=== PATIENT | female | born 1955 ===

== ENCOUNTER 2019-05-14 08:40 | Day surgery (SDC) | payer MEDICARE ==
[~2019-05-14] VITALS: Ht 160 cm; Wt 60.6 kg
[~2019-05-14 08:40] MED LIST: LEVO-T50 MC1 PO; LORA.5 PO; [UNRECOGNIZED DRUG - OTHER] PO
--- NOTE | 2019-05-14 11:01 | NUR ---
05/14/19 1101 Na Churchill 3CC NS AND 3.5 SPOT MARKER INJECTED FOR POLYPECTOMY IN SIGMOID COLON
--- NOTE | 2019-05-14 11:44 | NUR ---
05/14/19 1144 Na Churchill PT ASSISTED TO RESTROOM
== END 2019-05-14 11:48 | disposition home or self-care (01) ==
LOC: ORSCSDS 08:40
PROVIDERS: Internal Medicine Gastroenterology
PROC: 0DB68ZX Excision of Stomach, Via Natural or Artificial Opening Endoscopic, Diagnostic (ICD-10-PCS; principal; 2019-05-14 09:45)
PROC: 0DBN8ZX Excision of Sigmoid Colon, Via Natural or Artificial Opening Endoscopic, Diagnostic (ICD-10-PCS; principal; 2019-05-14 09:45)
PROC: 0DBL8ZX Excision of Transverse Colon, Via Natural or Artificial Opening Endoscopic, Diagnostic (ICD-10-PCS; principal; 2019-05-14 09:45)
PROC: 0DB58ZX Excision of Esophagus, Via Natural or Artificial Opening Endoscopic, Diagnostic (ICD-10-PCS; principal; 2019-05-14 09:45)
PROC: 0D757ZZ Dilation of Esophagus, Via Natural or Artificial Opening (ICD-10-PCS; principal; 2019-05-14 09:45)
DX: R13.14 Dysphagia, pharyngoesophageal phase (principal); D64.9 Anemia, unspecified; Z12.11 Encounter for screening for malignant neoplasm of colon; K21.0 Gastro-esophageal reflux disease with esophagitis; K29.70 Gastritis, unspecified, without bleeding; K31.7 Polyp of stomach and duodenum; D12.3 Benign neoplasm of transverse colon; D12.5 Benign neoplasm of sigmoid colon; Z80.0 Family history of malignant neoplasm of digestive organs; K25.4 Chronic or unspecified gastric ulcer with hemorrhage; K57.30 Diverticulosis of large intestine without perforation or abscess without bleeding; K64.8 Other hemorrhoids; E03.9 Hypothyroidism, unspecified; F17.210 Nicotine dependence, cigarettes, uncomplicated; Z79.899 Other long term (current) drug therapy
CPT/HCPCS: 88305; 88342; J2704; J7120